=== PATIENT | female | born 1950 | race Caucasian/White ===

== ENCOUNTER 2024-02-05 06:32 | Day surgery (SDC) | payer MEDICARE, SELFPAY ==
[2024-02-05 11:00] VITALS: BMI 44.6
[2024-02-05 11:10] VITALS: BP 138/75
[2024-02-05 11:45] VITALS: BMI 44.6
[2024-02-05 13:50] VITALS: BP 149/54
[2024-02-05 14:00] VITALS: BP 120/52
[2024-02-05 14:09] VITALS: BP 147/56
== END 2024-02-05 14:30 | disposition home or self-care (01) ==
LOC: GI 06:32
PROVIDERS: ATTENDING PHYSICIAN Internal Medicine Gastroenterology
DX: D12.2 Benign neoplasm of ascending colon (principal); D12.3 Benign neoplasm of transverse colon; D12.4 Benign neoplasm of descending colon; D12.5 Benign neoplasm of sigmoid colon; K57.30 Diverticulosis of large intestine without perforation or abscess without bleeding; K64.0 First degree hemorrhoids; Q43.8 Other specified congenital malformations of intestine
CPT/HCPCS: 45390; 45385; 88305